=== PATIENT | male | born 1985 | race Native Hawaiian/Other Pacific Islander ===

== ENCOUNTER 2023-12-02 09:04 | Outpatient (CLI) | payer MEDICAID, SELFPAY ==
--- NOTE | 2023-12-02 09:12 | US_ITS ---
WS: [id number] Subcutaneous ultrasound of left posterior forearm, 12/02/2023 Clinical Data: LOCALIZED SWELLING,MASS AND LUMP, LEFT UPPER LIMB Comparison: None. Findings: There is a subcutaneous collection of small blood vessels with well-defined borders and calcification s. No other abnormalities are seen. US/US soft tissue/extremity [id number] Impression: Possible subcutaneous hemangioma of the left forearm.
== END 2023-12-02 09:05 | disposition home or self-care (01) ==
PROVIDERS: PCP Registered Nurse; Visit Provider Registered Nurse
DX: R22.32 Localized swelling, mass and lump, left upper limb (principal); D18.01 Hemangioma of skin and subcutaneous tissue
CPT/HCPCS: 76882

== ENCOUNTER → 2023-12-06 07:32 | Outpatient (BNVA) | payer MEDICAID, SELFPAY | PROVIDERS: PCP Registered Nurse; Visit Provider Registered Nurse | DX: T78.00XA Anaphylactic reaction due to unspecified food, initial encounter (principal) | CPT/HCPCS: 86003; 86008 ==

== ENCOUNTER 2024-08-13 13:23 | Outpatient (RCR) | payer MEDICAID, SELFPAY | END 2024-08-29 23:59 | disposition home or self-care (01) | LOC: SPT 13:23 | PROVIDERS: Visit Provider Orthopaedic Surgery | DX: M25.562 Pain in left knee (principal); G89.29 Other chronic pain | CPT/HCPCS: 97110; 97140; 97161 ==

== ENCOUNTER 2024-08-30 05:00 | Outpatient (RCR) | payer MEDICAID, SELFPAY | END 2024-09-29 23:59 | disposition home or self-care (01) | LOC: SPT 05:00 | PROVIDERS: Visit Provider Orthopaedic Surgery | DX: M25.562 Pain in left knee (principal); G89.29 Other chronic pain | CPT/HCPCS: 97110 ==

== ENCOUNTER 2024-09-30 05:00 | Outpatient (RCR) | payer MEDICAID, SELFPAY | END 2024-10-29 23:59 | disposition home or self-care (01) | LOC: SPT 05:00 | PROVIDERS: Visit Provider Orthopaedic Surgery | DX: M25.562 Pain in left knee (principal); G89.29 Other chronic pain | CPT/HCPCS: 97110 ==